=== PATIENT | female | born 2000 | race Caucasian/White ===

== ENCOUNTER 2023-01-09 22:09 | Outpatient (REF) | payer OTHER, SELFPAY ==
[2023-01-11 20:21] LABS: Chlamydia Result Negative (Negative); GC Result Negative (Negative)
== END 2023-01-09 22:10 | disposition home or self-care (01) ==
LOC: LBN 22:09
PROVIDERS: Visit Provider Physician Assistant
DX: N89.8 Other specified noninflammatory disorders of vagina (principal); Z11.3 Encounter for screening for infections with a predominantly sexual mode of transmission
CPT/HCPCS: 87491; 87591; 87480; 87510; 87660